=== PATIENT | female | born 1970 | race Two or more races ===

== ENCOUNTER 2023-04-04 05:01 | Inpatient (IN) | payer SELFPAY ==
[~2023-04-04] VITALS: Ht 157.5 cm; Wt 64.3 kg
[2023-04-04 06:06] LABS: BASOPHILS % (AUTO) 0.6 % (0.0-2.0); EOSINOPHILS % (AUTO) 0.1 % (1.0-6.0); HEMATOCRIT 40.9 % (36-46); LYMPHOCYTES # (AUTO) 1.6 K/uL (1.0-4.8); LYMPHOCYTES % (AUTO) 15.5 % (22.0-44.0); MEAN CORPUSCULAR HEMOGLOBIN 30.3 pg (26.0-34.0); MEAN CORPUSCULAR HGB CONC 34.1 G/dL (31.0-37.0); MEAN CORPUSCULAR VOLUME 89 fL (80-100); MONOCYTES # (AUTO) 0.2 K/uL (0.1-1.0); NEUTROPHILS # (AUTO) 8.6 K/uL (1.8-7.7); NEUTROPHILS % (AUTO) 81.8 % (40.0-70.0); PLATELET COUNT (AUTO) 279 K/uL (150-450); RED BLOOD CELL COUNT(AUTO) 4.61 MIL/uL (4.00-5.20); RED CELL DISTRIBUTION WIDTH 13.4 % (11.5-14.5); WHITE BLOOD COUNT (AUTO) 10.5 K/uL (4.5-11.0)
[2023-04-04 06:16] LABS: ANION GAP 10 mmol/L (8-16); CALCIUM, TOTAL 9.3 mg/dL (8.8-10.5); CARBON DIOXIDE 27 mmol/L (22-29); CHLORIDE 101 mmol/L (98-107); CREATININE 0.75 mg/dL (0.60-1.30); GLOMERULAR FILTR. RATE CALC > 60 mL/min (>60); GLUCOSE,RANDOM 162 mg/dL (70-110); POTASSIUM 4.3 mmol/L (3.5-5.1); SODIUM SERUM 138 mmol/L (136-145); UREA NITROGEN, BLOOD 16 mg/dL (7-18)
[2023-04-04 06:18] LABS: APPEARANCE,URINE HAZY (CLEAR); BILIRUBIN,URINE NEGATIVE (NEGATIVE); COLOR,URINE LIGHT YELLOW (YELLOW); GLUCOSE, URINE (UA) NEGATIVE (NEGATIVE); KETONES,URINE NEGATIVE (NEGATIVE); LEUKOCYTE ESTERASE ,URINE NEGATIVE (NEGATIVE); NITRATE,URINE NEGATIVE (NEGATIVE); OCCULT BLOOD,URINE TRACE (NEGATIVE); PH,URINE 8.5 (5.0-8.0); PROTEIN,URINE TRACE mg/dL (NEGATIVE); UROBILINOGEN,URINE <=1.0 mg/dL (<=1.0)
[2023-04-04] MEDS: ONDANSETRON HCL 4 MG/2 ML VIAL IVP ONE (06:20)
[2023-04-04] MEDS: FentaNYL CITRATE PF 100 MCG/2 ML VIAL IVP ONE (06:20)
[2023-04-04 06:23] LABS: ALANINE AMINOTRANSFERASE 34 U/L (12-78); ALKALINE PHOSPHATASE 61 U/L (46-116); ASPARTATE AMINOTRANSFERASE 18 U/L (15-37); BILIRUBIN,TOTAL 0.3 mg/dL (0.1-1.0); LIPASE 19 U/L (16-77)
[2023-04-04 06:24] LABS: TROPONIN I-HIGH SENSITIVITY 4 ng/L (<51)
[2023-04-04 06:42] LABS: RBC,URINE 0-2 /HPF (0-2)
[2023-04-04 06:43] LABS: AMORPHOUS SEDIMENT,UR Moderate /LPF (None Seen); BACTERIA,URINE None Seen /HPF (None Seen); SQUAMOUS EPITHELIAL CELL,UR Few /LPF (None Seen); WBC,URINE None Seen /HPF (0-5)
[2023-04-04] MEDS: SODIUM CHLORIDE 0.9% 1,000 ML IV ONE (07:32)
[2023-04-04] MEDS: FAMOTIDINE 20 MG/2 ML VIAL IVP ONE (07:34)
[2023-04-04] MEDS: PIPERACILLIN/TAZO 3.375 GM/D5W 50 ML IV SCH (13:46)
[2023-04-04] MEDS ORDERED: BISACODYL 10 MG RECTAL RECTAL SUPPOSITORY PR PRN (16:45)
[2023-04-04] MEDS ORDERED: MAGNESIUM HYDROXIDE SUSPENSION 30 ML UDCUP PO PRN (16:45)
[2023-04-04] MEDS ORDERED: IPRATROPIUM BROMIDE 0.5 MG/2.5 ML NEB SOLUTION NEB PRN (16:45)
[2023-04-04] MEDS ORDERED: HYDROCODONE/ACETAMINOPHEN 5-325 MG TABLET PO PRN (16:45)
[2023-04-04] MEDS ORDERED: ALBUTEROL SULFATE 2.5 MG/0.5 ML NEB SOLUTION NEB PRN (16:45)
[2023-04-04] MEDS ORDERED: ACETAMINOPHEN 325 MG TABLET PO PRN (16:45)
[2023-04-04] MEDS ORDERED: ONDANSETRON HCL 4 MG/2 ML VIAL IVP PRN (16:45)
[2023-04-04] MEDS ORDERED: MORPHINE SULFATE 2 MG/ML SYRINGE IVP PRN (16:45)
[2023-04-04] MEDS ORDERED: ZOLPIDEM TARTRATE 5 MG TABLET PO PRN (16:45)
[2023-04-04 18:37] LABS: COVID AG,FIA SOURCE NASAL SWAB
[2023-04-04 18:45] LABS: SARS-COV2 (COVID) ANTIGEN,FIA Negative (Negative)
[2023-04-04] MEDS: DOCUSATE SODIUM 100 MG CAPSULE PO SCH (21:00)
[2023-04-04 21:01] VITALS: BP 132/95; PULSE 72; RESP 19; TEMP 98.9
[2023-04-05] MEDS: HEPARIN SODIUM,PORCINE 5,000 UNITS/ML VIAL SQ SCH
[2023-04-05] MEDS: SODIUM CHLORIDE 0.9% 1,000 ML IV SCH ×2 (01:13→07:18)
[2023-04-05] MEDS: PIPERACILLIN/TAZO 3.375 GM/D5W 50 ML IV SCH (01:14)
[2023-04-05 04:18] VITALS: BP 104/68; PULSE 84; RESP 16; TEMP 99.1
[2023-04-05] MEDS ORDERED: SODIUM CHLORIDE 0.9% 1,000 ML ONE (06:53)
[2023-04-05] MEDS: ETHYL ALCOHOL 62% ANTISEPTIC NASAL SANITIZER 0.6 ML AMPUL NASAL ONE (07:09)
[2023-04-05] MEDS ORDERED: MEPERIDINE-PF 25 MG/ML VIAL IVP PRN (08:30)
[2023-04-05] MEDS ORDERED: FentaNYL CITRATE PF 100 MCG/2 ML VIAL IVP PRN (08:30)
[2023-04-05] MEDS ORDERED: HYDROmorphone HCL 2 MG/ML SYRINGE IVP PRN (08:30)
[2023-04-05] MEDS: BUPIVACAINE HCL/PF 0.25% 30 ML VIAL ONE (08:40)
[2023-04-05] MEDS: PANTOPRAZOLE SODIUM 40 MG/VIAL IVP SCH (09:00)
[2023-04-05 10:04] VITALS: BP 114/69; PULSE 87; RESP 20; TEMP 97.6
[2023-04-05] MEDS: CHLORHEXIDINE GLUCONATE 2% TOWELETTE [2'S/6'S] TP ONE (13:00)
[2023-04-05] MEDS ORDERED: AMOX1TAB16 PO (13:16)
[2023-04-05] MEDS ORDERED: HYDR-4723 PO (13:28)
[2023-04-05 15:26] VITALS: BP 106/63; PULSE 92; RESP 18; TEMP 98.1
[2023-04-05] MEDS ORDERED: KETOROLAC TROMETHAMINE 60 MG/2 ML VIAL IM ONE (17:59)
[2023-04-05] MEDS ORDERED: PROPOFOL 1% 20 ML VIAL IVP ONE (17:59)
[2023-04-05] MEDS ORDERED: DEXAMETHASONE SOD PHOS 4 MG/ML VIAL IVP ONE (17:59)
[2023-04-05] MEDS ORDERED: MIDAZOLAM HCL 2 MG/2 ML VIAL IVP ONE (17:59)
[2023-04-05] MEDS ORDERED: ROCURONIUM BROMIDE 10 MG/ML 5 ML VIAL IVP ONE (17:59)
[2023-04-05] MEDS ORDERED: ACETAMINOPHEN/ISO-OSM 1000 MG/100 ML BOTTLE IV ONE (17:59)
[2023-04-05] MEDS ORDERED: ONDANSETRON HCL 4 MG/2 ML VIAL IVP ONE (17:59)
[2023-04-05] MEDS ORDERED: FentaNYL CITRATE PF 100 MCG/2 ML VIAL IVP ONE (17:59)
[2023-04-05] MEDS ORDERED: LIDOCAINE/PF 2% 5 ML VIAL IM ONE (17:59)
[2023-04-05] MEDS ORDERED: SUGAMMADEX SODIUM 200 MG/2 ML VIAL IVP ONE (17:59)
[2023-04-05] MEDS ORDERED: EPHEDrine SULFATE 50 MG/ML VIAL IM ONE (17:59)
[2023-04-05] MEDS ORDERED: OXYGEN THERAPY IH SCH (20:00)
== END 2023-04-05 18:00 | disposition home or self-care (01) | DRG 419 ==
LOC: EMS 05:02 → 5N 18:26 → 6N 04-05 10:00
PROVIDERS: ADMIT Hospitalist; ATTEND Hospitalist
PROC: 0FT44ZZ Resection of Gallbladder, Percutaneous Endoscopic Approach (ICD-10-PCS; principal; 2023-04-05 07:45)
DX: K81.0 Acute cholecystitis (principal); Z20.822 Contact with and (suspected) exposure to COVID-19; Z98.891 History of uterine scar from previous surgery
CPT/HCPCS: 71045; 76700; 80053; 81001; 83690; 84484; 85025; 88304; 93005; 99285; J0131; J1100; J1885; J2250; J2405; J2543; J2704; J3010; J3490; J7030; Q9967; 36415-L1; 36415-TC; Z7610